=== PATIENT | male | born 1980 | race Two or more races ===

== ENCOUNTER 2022-04-06 09:31 | Emergency (ER) | payer BC ==
[2022-04-06 10:52] LABS: HEMOGLOBIN 13.9 gm/dl (14.0-17.5); RED BLOOD COUNT 4.48 M/UL (4.20-5.50); WHITE BLOOD COUNT 5.2 K/UL (4.5-11.0)
[2022-04-06 11:16] LABS: BUN/CREATININE RATIO 14 (0-10)
== END 2022-04-06 12:46 | disposition home or self-care (01) ==
LOC: ER1 09:31
PROVIDERS: Emergency Medicine
DX: M79.605 Pain in left leg (principal); R60.0 Localized edema
CPT/HCPCS: 80053; 83880; 84550; 85025; 93971; 99284